=== PATIENT | female | born 1975 | race Caucasian/White ===

== ENCOUNTER 2018-06-24 10:20 | Emergency (ER) | payer OTHER, BC ==
[2018-06-24] MEDS: ONDANSETRON 4MG/2ML VIAL (J2405) IV (11:03)
[2018-06-24] MEDS: MORPHINE 4 MG/ML 1ML VIAL/SYRINGE (J2270) IV (11:03)
== END 2018-06-24 12:26 | disposition home or self-care (01) ==
LOC: M ED 10:20
DX: S16.1XXA Strain of muscle, fascia and tendon at neck level, initial encounter (principal); T14.8XXA Other injury of unspecified body region, initial encounter; V43.52XA Car driver injured in collision with other type car in traffic accident, initial encounter; Y92.410 Unspecified street and highway as the place of occurrence of the external cause; Y93.9 Activity, unspecified; Y99.9 Unspecified external cause status; M51.37 Other intervertebral disc degeneration, lumbosacral region; M50.221 Other cervical disc displacement at C4-C5 level; M50.222 Other cervical disc displacement at C5-C6 level; M46.02 Spinal enthesopathy, cervical region
CPT/HCPCS: J2270

== ENCOUNTER 2018-09-05 11:39 | Emergency (ER) | payer BC, OTHER ==
[~2018-09-05] VITALS: Ht 160 cm; Wt 80.0 kg
[~2018-09-05 11:39] MED LIST: CYCL5TAB PO; NAPR-50 PO
[2018-09-05 12:47] LABS: INFLUENZA A AMPLIFICATION NEGATIVE (NEGATIVE); INFLUENZA B AMPLIFICATION NEGATIVE (NEGATIVE)
[2018-09-05] MEDS ORDERED: BENZONATATE 100 MG CAP PO ONE (14:00)
[2018-09-05] MEDS ORDERED: ALBUTEROL SULFATE 2.5 MG/0.5 ML INH NEB SOLN NEB ONE (14:00)
[2018-09-05] MEDS ORDERED: NS 1,000 ML IV ONE (14:00)
[2018-09-05 14:32] LABS: BASO # 0.1 10^3/uL (0.0-0.2); BASO % 0.6 % (0.0-1.0); EOS # 0.5 10^3/uL (0.0-0.50); EOS % 5.6 % (0.0-3.0); HEMATOCRIT 39.6 % (36.0-47.0); HEMOGLOBIN 12.7 g/dl (12.0-15.5); LYMPH # 1.7 10^3/uL (1.5-4.5); LYMPH % 21.5 % (24.0-44.0); MEAN CORPUSCULAR HEMOGLOBIN 27.6 pg (27.0-33.0); MEAN CORPUSCULAR HGB CONC 32.1 g/dl (32.0-36.5); MEAN CORPUSCULAR VOLUME 86.1 fl (80.0-96.0); MONO # 0.4 10^3/uL (0.0-0.8); MONO % 5.3 % (0.0-5.0); NEUTROPHILS # 5.4 10^3/uL (1.8-7.7); NEUTROPHILS % 66.8 % (36.0-66.0); PLATELET COUNT, AUTOMATED 303 10^3/uL (150-450); WHITE BLOOD COUNT 8.1 10^3/uL (4.0-10.0)
--- NOTE | 2018-09-05 14:35 | REP ---
Chest two views HISTORY: Cough Comparison: 06/24/2018 The lungs are clear. The heart is normal in size. The pulmonary vasculature is normal in appearance. The bony structure is intact. IMPRESSION: No acute disease. Electronically Signed by Johnny Goodwin MD 09/05/2018 02:27 P
[2018-09-05 14:59] LABS: BLOOD UREA NITROGEN 11 MG/DL (7-18); CALCIUM LEVEL 8.5 MG/DL (8.5-10.1); CARBON DIOXIDE LEVEL 25 MEQ/L (21-32); CHLORIDE LEVEL 107 MEQ/L (98-107); CREATININE FOR GFR 0.81 MG/DL (0.55-1.30); GLOMERULAR FILTRATION RATE > 60.0 (>58); GLUCOSE, FASTING 91 MG/DL (70-100); POTASSIUM SERUM 3.9 MEQ/L (3.5-5.1); SODIUM LEVEL 140 MEQ/L (136-145)
[2018-09-05] MEDS ORDERED: PROAAER10 INH (15:30)
[2018-09-05] MEDS ORDERED: TESS100C PO (15:30)
[2018-09-05 15:45] VITALS: BP 141/92
== END 2018-09-05 16:12 | disposition home or self-care (01) ==
LOC: M ED 11:39
DX: J06.9 Acute upper respiratory infection, unspecified (principal); D64.9 Anemia, unspecified; Z87.440 Personal history of urinary (tract) infections; Z98.84 Bariatric surgery status

== ENCOUNTER → 2018-09-28 | Outpatient (REF) | payer BC, OTHER, SELFPAY ==
[~2018-09-28] MED LIST changes: -NAPR-50 PO; +NAPR-837 PO; +PROAAER10 INH; +TESS100C PO
[2018-09-28 19:40] LABS: BASO # 0.1 10^3/uL (0.0-0.2); BASO % 0.8 % (0.0-1.0); EOS # 0.4 10^3/uL (0.0-0.50); EOS % 3.8 % (0.0-3.0); HEMATOCRIT 37.7 % (36.0-47.0); HEMOGLOBIN 11.8 g/dl (12.0-15.5); LYMPH # 2.2 10^3/uL (1.5-4.5); LYMPH % 21.9 % (24.0-44.0); MEAN CORPUSCULAR HEMOGLOBIN 26.8 pg (27.0-33.0); MEAN CORPUSCULAR HGB CONC 31.3 g/dl (32.0-36.5); MEAN CORPUSCULAR VOLUME 85.7 fl (80.0-96.0); MONO # 0.6 10^3/uL (0.0-0.8); MONO % 6.1 % (0.0-5.0); NEUTROPHILS # 6.8 10^3/uL (1.8-7.7); PLATELET COUNT, AUTOMATED 343 10^3/uL (150-450); WHITE BLOOD COUNT 10.1 10^3/uL (4.0-10.0)
[2018-09-28 19:45] LABS: ALBUMIN 3.9 GM/DL (3.2-5.2); ALT/SGPT 26 U/L (12-78); BILIRUBIN,TOTAL 0.3 MG/DL (0.2-1.0); BLOOD UREA NITROGEN 13 MG/DL (7-18); CALCIUM LEVEL 8.3 MG/DL (8.5-10.1); CARBON DIOXIDE LEVEL 28 MEQ/L (21-32); CHLORIDE LEVEL 105 MEQ/L (98-107); CREATININE FOR GFR 0.79 MG/DL (0.55-1.30); FERRITIN 6 NG/ML (8-252); FOLATE 7.5 NG/ML; FREE T4 0.89 NG/DL (0.76-1.46); GLOMERULAR FILTRATION RATE > 60.0 (>58); GLUCOSE, FASTING 85 MG/DL (70-100); IRON (FE) 24 UG/DL (50-170); POTASSIUM SERUM 3.9 MEQ/L (3.5-5.1); SODIUM LEVEL 139 MEQ/L (136-145); TOTAL 25(OH) VITAMIN D 11.1 NG/ML (30.0-100.0); TOTAL IRON BINDING CAPACITY 476 UG/DL (250-450); TOTAL PROTEIN 7.5 GM/DL (6.4-8.2); VITAMIN B12 LEVEL 494 PG/ML
== END ==
LOC: M SFHCADAM 15:13
PROVIDERS: ATTEND Physician Assistant Medical
DX: D50.8 Other iron deficiency anemias (principal); D51.3 Other dietary vitamin B12 deficiency anemia; E66.9 Obesity, unspecified

== ENCOUNTER 2019-01-21 08:34 | Emergency (ER) | payer BC, OTHER ==
[~2019-01-21] VITALS: Ht 157.5 cm; Wt 79.5 kg
[2019-01-21] MEDS ORDERED: ACETAMINOPHEN TAB 650MG DOSE (2X325MG) PO ONE (10:00)
[2019-01-21] MEDS ORDERED: methylPREDNISolone INJ 125 MG/2 ML VIAL (J2930) IM ONE (10:00)
[2019-01-21] MEDS ORDERED: IPRATROPIUM 0.5MG/ALBUTEROL 2.5MG INH SOL UD 3ML (DUONEB)(J7620) NEB ONE ×2 (10:00→11:15)
[2019-01-21 10:19] LABS: HEMATOCRIT 35.8 % (36.0-47.0); HEMOGLOBIN 11.1 g/dl (12.0-15.5); MEAN CORPUSCULAR HEMOGLOBIN 25.2 pg (27.0-33.0); MEAN CORPUSCULAR VOLUME 81.4 fl (80.0-96.0); PLATELET COUNT, AUTOMATED 354 10^3/uL (150-450); WHITE BLOOD COUNT 5.7 10^3/uL (4.0-10.0)
[2019-01-21 11:03] VITALS: BP 158/95
[2019-01-21] MEDS ORDERED: PRED10TA2 PO (11:31)
[2019-01-21] MEDS ORDERED: PROAAER10 INH (11:31)
[2019-01-21] MEDS ORDERED: TESS100C PO (11:31)
--- NOTE | 2019-01-24 13:18 | REP ---
Clinical: Cough Comparison: 09/05/2018 . Technique: PA and lateral. Findings: The mediastinum and cardiac silhouette are normal. The lung sandhu are clear and without acute consolidation, effusion, or pneumothorax. The skeletal structures are intact and normal. Impression: 1. No acute cardiopulmonary process. Electronically Signed by Luis Felipe Sheriff MD 01/21/2019 09:57 A
== END 2019-01-21 11:49 | disposition home or self-care (01) ==
LOC: M ED 08:34
DX: J20.9 Acute bronchitis, unspecified (principal); D64.9 Anemia, unspecified; Z20.828 Contact with and (suspected) exposure to other viral communicable diseases; I10 Essential (primary) hypertension; Z98.84 Bariatric surgery status
CPT/HCPCS: 71046; 80047; 84702; 85027; 87880; 96372; 99284; J2930

== ENCOUNTER 2019-03-24 19:30 | Emergency (ER) | payer BC, OTHER ==
[~2019-03-24] VITALS: Ht 162.6 cm; Wt 82.7 kg
[~2019-03-24 19:30] MED LIST changes: +PRED10TA2 PO
[2019-03-24] MEDS ORDERED: IRON325T9 PO (19:45)
[2019-03-24 20:23] LABS: BASO # 0.1 10^3/uL (0.0-0.2); BASO % 0.6 % (0.0-1.0); EOS # 0.2 10^3/uL (0.0-0.5); EOS % 1.9 % (0.0-3.0); HEMATOCRIT 33.2 % (36.0-47.0); LYMPH # 2.4 10^3/uL (1.5-5.0); MEAN CORPUSCULAR HEMOGLOBIN 23.5 pg (27.0-33.0); MEAN CORPUSCULAR HGB CONC 30.1 g/dl (32.0-36.5); MEAN CORPUSCULAR VOLUME 77.9 fl (80.0-96.0); MONO # 0.6 10^3/uL (0.0-0.8); MONO % 7.2 % (0.0-5.0); NEUTROPHILS # 4.6 10^3/uL (1.5-8.5); PLATELET COUNT, AUTOMATED 316 10^3/uL (150-450); RED BLOOD COUNT 4.26 10^6/uL (4.00-5.40); WHITE BLOOD COUNT 7.8 10^3/uL (4.0-10.0)
[2019-03-24 20:49] LABS: BLOOD UREA NITROGEN 13 MG/DL (7-18); CALCIUM LEVEL 8.8 MG/DL (8.5-10.1); CARBON DIOXIDE LEVEL 31 MEQ/L (21-32); CHLORIDE LEVEL 107 MEQ/L (98-107); CK-MB VALUE MASS 1.8 NG/ML (<3.6); CPK CREATINE PHOSPHOKINASE 249 U/L (26-192); CREATININE FOR GFR 0.92 MG/DL (0.55-1.30); GLOMERULAR FILTRATION RATE > 60.0 (>58); GLUCOSE, FASTING 97 MG/DL (70-100); MB/CK RELATIVE INDEX 0.72 (< OR =4); POTASSIUM SERUM 3.8 MEQ/L (3.5-5.1); SODIUM LEVEL 142 MEQ/L (136-145); TROPONIN I < 0.02 NG/ML (< 0.10)
--- NOTE | 2019-03-24 21:03 | REP ---
Clinical: Acute chest pain . Comparison: 01/21/2019 . Findings: The mediastinum and cardiac silhouette are stable and within normal limits for portable technique. The lung sandhu are clear without acute consolidation, effusion, or pneumothorax. Skeletal structures are intact. Impression: No acute cardiopulmonary process appreciated. Electronically Signed by Luis Felipe Sheriff MD 03/24/2019 08:54 P
[2019-03-24 22:58] LABS: CK-MB VALUE MASS 1.5 NG/ML (<3.6); CPK CREATINE PHOSPHOKINASE 211 U/L (26-192); MB/CK RELATIVE INDEX 0.71 (< OR =4); TROPONIN I < 0.02 NG/ML (< 0.10)
[2019-03-24] MEDS ORDERED: CARISOPRODOL 350 MG TAB PO ONE (23:15)
[2019-03-24] MEDS ORDERED: SOMA250T PO (23:19)
[2019-03-24 23:42] VITALS: BP 142/74
--- NOTE | 2019-03-25 20:29 | ECGEPIP ---
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
--- NOTE | 2019-03-25 20:32 | ECGEPIP ---
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
== END 2019-03-24 23:52 | disposition home or self-care (01) ==
LOC: EDBD 19:30 → M ED 19:30
DX: R07.89 Other chest pain (principal); S39.012A Strain of muscle, fascia and tendon of lower back, initial encounter; D64.9 Anemia, unspecified; N36.8 Other specified disorders of urethra; Z79.899 Other long term (current) drug therapy; Z98.84 Bariatric surgery status; Z90.49 Acquired absence of other specified parts of digestive tract

== ENCOUNTER → 2019-04-03 | Outpatient (CLI) | payer BC, OTHER ==
[~2019-04-03] MED LIST changes: +IRON325T9 PO; +SOMA250T PO
[2019-04-03 13:19] LABS: BASO % 0.7 % (0.0-1.0); EOS # 0.1 10^3/uL (0.0-0.5); EOS % 1.7 % (0.0-3.0); HEMATOCRIT 35.5 % (36.0-47.0); HEMOGLOBIN 10.7 g/dl (12.0-15.5); LYMPH # 1.6 10^3/uL (1.5-5.0); LYMPH % 27.6 % (24.0-44.0); MEAN CORPUSCULAR HEMOGLOBIN 23.1 pg (27.0-33.0); MEAN CORPUSCULAR HGB CONC 30.1 g/dl (32.0-36.5); MEAN CORPUSCULAR VOLUME 76.5 fl (80.0-96.0); MONO # 0.4 10^3/uL (0.0-0.8); MONO % 6.8 % (0.0-5.0); NEUTROPHILS # 3.6 10^3/uL (1.5-8.5); PLATELET COUNT, AUTOMATED 356 10^3/uL (150-450); RED BLOOD COUNT 4.64 10^6/uL (4.00-5.40); WHITE BLOOD COUNT 5.8 10^3/uL (4.0-10.0)
[2019-04-03 13:37] LABS: ALBUMIN 3.9 GM/DL (3.2-5.2); ALT/SGPT 18 U/L (12-78); BILIRUBIN,TOTAL 0.5 MG/DL (0.2-1.0); BLOOD UREA NITROGEN 9 MG/DL (7-18); CALCIUM LEVEL 8.8 MG/DL (8.5-10.1); CARBON DIOXIDE LEVEL 28 MEQ/L (21-32); CHLORIDE LEVEL 107 MEQ/L (98-107); CREATININE FOR GFR 0.85 MG/DL (0.55-1.30); FOLATE 9.4 NG/ML; GLOMERULAR FILTRATION RATE > 60.0 (>58); GLUCOSE, FASTING 88 MG/DL (70-100); IRON (FE) 16 UG/DL (50-170); PERCENT SATURATION 3.3 % (13.2-45.0); POTASSIUM SERUM 3.8 MEQ/L (3.5-5.1); SODIUM LEVEL 141 MEQ/L (136-145); TOTAL IRON BINDING CAPACITY 487 UG/DL (250-450); TOTAL PROTEIN 7.5 GM/DL (6.4-8.2); VITAMIN B12 LEVEL 379 PG/ML
--- NOTE | 2019-04-04 02:29 | REP ---
Clinical: Acute chest pain . Comparison: 01/21/2019 . Technique: PA and lateral. Findings: The mediastinum and cardiac silhouette are normal. The lung sandhu are clear and without acute consolidation, effusion, or pneumothorax. The skeletal structures are intact and normal. Impression: 1. No acute cardiopulmonary process. Electronically Signed by Luis Felipe Sheriff MD 04/04/2019 02:20 A
== END ==
LOC: M WUC 10:49
PROVIDERS: ATTEND Nurse Practitioner Family
DX: R07.9 Chest pain, unspecified (principal); R42 Dizziness and giddiness

== ENCOUNTER → 2019-07-24 | Outpatient (REF) | payer BC, OTHER ==
[2019-07-24 16:29] LABS: HEMATOCRIT 35.2 % (36.0-47.0); HEMOGLOBIN 9.8 g/dl (12.0-15.5); MEAN CORPUSCULAR HEMOGLOBIN 20.7 pg (27.0-33.0); MEAN CORPUSCULAR HGB CONC 27.8 g/dl (32.0-36.5); MEAN CORPUSCULAR VOLUME 74.3 fl (80.0-96.0); PLATELET COUNT, AUTOMATED 430 10^3/uL (150-450); RED BLOOD COUNT 4.74 10^6/uL (4.00-5.40); WHITE BLOOD COUNT 8.5 10^3/uL (4.0-10.0)
[2019-07-24 16:38] LABS: PERCENT SATURATION 2.7 % (13.2-45.0)
[2019-07-24 17:03] LABS: TOTAL 25(OH) VITAMIN D 11.8 NG/ML (30.0-100.0)
== END ==
LOC: M SFHCADAM 14:08
PROVIDERS: ATTEND Physician Assistant Medical
DX: D50.8 Other iron deficiency anemias (principal); E55.9 Vitamin D deficiency, unspecified; R39.15 Urgency of urination

== ENCOUNTER → 2019-07-24 | Outpatient (REF) | payer BC, OTHER ==
[2019-07-24 18:07] LABS: APPEARANCE, URINE CLEAR (CLEAR); BACTERIA, URINE AUTO NEGATIVE (NEGATIVE); BILIRUBIN, URINE AUTO NEGATIVE (NEGATIVE); BLOOD, URINE BLOOD NEGATIVE (NEGATIVE); COLOR, URINE YELLOW (YELLOW); GLUCOSE, URINE (UA) AUTO NEGATIVE (NEGATIVE); KETONE, URINE AUTO NEGATIVE (NEGATIVE); LEUKOCYTE ESTERASE, URINE AUTO NEGATIVE (NEGATIVE); MUCUS, URINE SMALL (NEGATIVE); NITRITE, URINE AUTO NEGATIVE (NEGATIVE); PROTEIN, URINE AUTO NEGATIVE (NEGATIVE); RBC, URINE AUTO 0 /HPF (0-3); SPECIFIC GRAVITY URINE AUTO 1.016 (1.002-1.035); SQUAMOUS EPITHELIAL CELL UR AU 1 /HPF (0-6); UROBILINOGEN, URINE AUTO 0.2 mg/dL (0.0-2.0); WBC, URINE AUTO 3 /HPF (0-3)
== END ==
LOC: M SFHCADAM 17:22
PROVIDERS: ATTEND Physician Assistant Medical
DX: R39.15 Urgency of urination (principal)

== ENCOUNTER → 2019-08-14 | Outpatient (REF) | payer OTHER ==
[2019-08-14 19:26] LABS: ALT/SGPT 22 U/L (12-78); AMYLASE 38 U/L (25-115); BILIRUBIN,TOTAL 0.2 MG/DL (0.2-1.0); BLOOD UREA NITROGEN 14 MG/DL (7-18); CALCIUM LEVEL 9.3 MG/DL (8.5-10.1); CARBON DIOXIDE LEVEL 29 MEQ/L (21-32); CHLORIDE LEVEL 106 MEQ/L (98-107); CREATININE FOR GFR 0.96 MG/DL (0.55-1.30); GLOMERULAR FILTRATION RATE > 60.0 (>58); GLUCOSE, FASTING 79 MG/DL (70-100); LIPASE 214 U/L (73-393); POTASSIUM SERUM 4.1 MEQ/L (3.5-5.1); SODIUM LEVEL 141 MEQ/L (136-145); TOTAL PROTEIN 7.6 GM/DL (6.4-8.2)
[2019-08-15 10:41] LABS: FOLATE 10.2 NG/ML
[2019-08-17 14:08] LABS: ANTI-PARIETAL CELL ANTIBODY 3.5 Units (0.0-20.0)
== END ==
LOC: M SFHCADAM 15:36
PROVIDERS: ATTEND Physician Assistant
DX: D51.3 Other dietary vitamin B12 deficiency anemia (principal); N30.00 Acute cystitis without hematuria; R10.13 Epigastric pain
CPT/HCPCS: 80053; 81002; 82150; 82607; 82746; 83690; 86255; 86256; 87086; G0463

== ENCOUNTER 2019-08-16 07:44 | Outpatient (CLI) | payer OTHER ==
[~2019-08-16] VITALS: Ht 162.6 cm; Wt 82.7 kg
[2019-08-16] MEDS ORDERED: IRON SUCROSE 100 MG in NS 100 ML IV ONE (08:00)
[2019-08-16 08:07] VITALS: BP 138/86
[2019-08-16 08:22] VITALS: BP 123/72
[2019-08-16 09:18] VITALS: BP 112/63
[2019-08-16 09:55] VITALS: BP 124/75
== END 2019-08-16 09:55 | disposition home or self-care (01) ==
LOC: M INFU 07:44
PROVIDERS: ATTEND Physician Assistant Medical
DX: D50.9 Iron deficiency anemia, unspecified (principal)
CPT/HCPCS: 96365; J1756

== ENCOUNTER 2019-08-24 06:52 | Outpatient (CLI) | payer OTHER ==
[~2019-08-24] VITALS: Ht 162.6 cm; Wt 82.7 kg
[2019-08-24 07:00] VITALS: BP 146/72
[2019-08-24] MEDS ORDERED: IRON SUCROSE 200 MG in NS 200 ML IV ONE (07:30)
[2019-08-24 08:05] VITALS: BP 129/82
[2019-08-24 09:00] VITALS: BP 125/68
[2019-08-24 09:20] VITALS: BP 136/78
[2019-08-24 09:45] VITALS: BP 123/73
== END 2019-08-24 09:45 | disposition home or self-care (01) ==
LOC: M INFU 06:52
PROVIDERS: ATTEND Physician Assistant Medical
DX: D50.8 Other iron deficiency anemias (principal); E53.8 Deficiency of other specified B group vitamins
CPT/HCPCS: 96365; 96366; J1756

== ENCOUNTER 2019-08-31 08:30 | Outpatient (CLI) | payer OTHER ==
[~2019-08-31] VITALS: Ht 162.6 cm; Wt 82.7 kg
[2019-08-31 08:25] VITALS: BP 141/70
[2019-08-31] MEDS ORDERED: IRON SUCROSE 200 MG in NS 200 ML IV ONE (09:30)
[2019-08-31 09:50] VITALS: BP 142/97
[2019-08-31 10:50] VITALS: BP 135/89
[2019-08-31 11:50] VITALS: BP 142/87
[2019-08-31 12:20] VITALS: BP 132/77
== END 2019-08-31 12:20 | disposition home or self-care (01) ==
LOC: M INFU 08:30
PROVIDERS: ATTEND Physician Assistant Medical
DX: D50.8 Other iron deficiency anemias (principal)

== ENCOUNTER → 2019-08-31 | Outpatient (CLI) | payer OTHER ==
--- NOTE | 2019-09-02 08:13 | ECHO ---
DATE OF PROCEDURE: 08/31/2019 HEIGHT: 64 inches. WEIGHT: 181 pounds. BODY SURFACE AREA: 1.87 meters squared REFERRING PHYSICIAN: DANNIE Correa INDICATION: Murmur. MEASUREMENTS: 2D Measurements: RV - 4.2 cm LV - 5.3 cm Septum - 1.1 cm Posterior wall - 1.1 cm Aortic root - 3.0 cm LA - 4.2 cm LVEF - 65% Doppler Measurements: AV - 1.36 meters per second LVOT - 0.93 meters per second LVOT diameter 1.9 cm MV-E - 106, A - 81, E/A ratio 1.3 Early mitral deceleration time 151 milliseconds E prime medial - 7, A prime medial - 8, E prime lateral - 10 Average, E/E prime ratio 12.5/PCWP -17.4 mmHg PV - 0.75 meters per second Pulmonary artery acceleration time - 130 milliseconds RVSP - 27 mmHg IVC - 1.6 cm COMMENTS: Normal sinus rhythm/sinus bradycardia without interventricular conduction disturbance. M-mode and two-dimensional echocardiography was performed with pulsed, continuous wave, color flow and tissue Doppler studies. Normal left ventricular size, wall thickness and wall motion. Mildly dilated left atrium with currently normal estimated left ventricular diastolic function and mean left atrial pressure. Right heart chamber sizes were upper limits of normal with normal wall motion and estimated pulmonary arterial pressure. Normal IVC size and collapse against an elevated central venous pressure. Normal-appearing aortic valve and function. Normal aortic root and ascending aortic diameters. Normal-appearing mitral valvular apparatus and leaflet excursion with no posterior systolic buckling. Only trace insufficiency (physiologic). Normal appearing tricuspid valve with trace insufficiency. No apparent intracardiac mass or pericardial effusion. Unable to detect a structural or functional abnormality to account for the patient's heart murmur likely flow related.
== END ==
LOC: M CARPUL 11:30
PROVIDERS: ATTEND Physician Assistant
DX: R01.1 Cardiac murmur, unspecified (principal); D50.8 Other iron deficiency anemias
CPT/HCPCS: 93306; 96365; 96366; J1756

== ENCOUNTER → 2019-09-03 | Outpatient (REF) | payer OTHER ==
[2019-09-03 16:21] LABS: HEMATOCRIT 36.4 % (36.0-47.0); HEMOGLOBIN 10.4 g/dl (12.0-15.5); MEAN CORPUSCULAR HEMOGLOBIN 21.5 pg (27.0-33.0); MEAN CORPUSCULAR HGB CONC 28.6 g/dl (32.0-36.5); MEAN CORPUSCULAR VOLUME 75.4 fl (80.0-96.0); PLATELET COUNT, AUTOMATED 399 10^3/uL (150-450); RED BLOOD COUNT 4.83 10^6/uL (4.00-5.40); WHITE BLOOD COUNT 6.7 10^3/uL (4.0-10.0)
[2019-09-03 16:31] LABS: PERCENT SATURATION 6.8 % (13.2-45.0)
== END ==
LOC: M SFHCADAM 13:47
PROVIDERS: ATTEND Physician Assistant Medical
DX: D50.8 Other iron deficiency anemias (principal); E55.9 Vitamin D deficiency, unspecified; D51.3 Other dietary vitamin B12 deficiency anemia; F32.2 Major depressive disorder, single episode, severe without psychotic features
CPT/HCPCS: 82306; 82607; 82728; 83550; 85027; 87804; G0463

== ENCOUNTER 2019-10-05 03:44 | Emergency (ER) | payer OTHER ==
[~2019-10-05] VITALS: Ht 160 cm; Wt 84.1 kg
[2019-10-05 04:48] LABS: INFLUENZA A AMPLIFICATION NEGATIVE (NEGATIVE); INFLUENZA B AMPLIFICATION NEGATIVE (NEGATIVE)
[2019-10-05 05:27] VITALS: BP 148/79
--- NOTE | 2019-10-05 08:00 | REP ---
Portable chest x-ray: Single view. History: Cough. Comparison study: April 03, 2019. Findings: The lungs are well inflated and clear. The pleural angles are sharp. Heart is not enlarged. Pulmonary vasculature is not increased. No significant bony abnormality. Impression: No acute disease. Electronically Signed by Horacio Mota MD 10/05/2019 07:51 A
== END 2019-10-05 05:32 | disposition home or self-care (01) ==
LOC: M ED 03:44
DX: J06.9 Acute upper respiratory infection, unspecified (principal); Z20.89 Contact with and (suspected) exposure to other communicable diseases; Z03.818 Encounter for observation for suspected exposure to other biological agents ruled out; D50.9 Iron deficiency anemia, unspecified; Z98.84 Bariatric surgery status; Z79.899 Other long term (current) drug therapy
CPT/HCPCS: 71045; 87502; 99283; U0002

== ENCOUNTER → 2020-08-21 | Outpatient (CLI) | payer OTHER ==
[~2020-08-21] MED LIST changes: +B-122500 PO; +vitamin d
[2020-08-21 16:19] LABS: HEMATOCRIT 30.3 % (36.0-47.0); HEMOGLOBIN 8.4 g/dl (12.0-15.5); MEAN CORPUSCULAR HGB CONC 27.7 g/dl (32.0-36.5); MEAN CORPUSCULAR VOLUME 72.1 fl (80.0-96.0); PLATELET COUNT, AUTOMATED 356 10^3/uL (150-450); WHITE BLOOD COUNT 8.5 10^3/uL (4.0-10.0)
[2020-08-21 16:53] LABS: PERCENT SATURATION 5.4 % (13.2-45.0)
== END ==
LOC: M WUC 14:08
PROVIDERS: ATTEND Physician Assistant Medical
DX: D50.8 Other iron deficiency anemias (principal); D51.3 Other dietary vitamin B12 deficiency anemia

== ENCOUNTER 2020-08-22 16:37 | Emergency (ER) | payer OTHER ==
[~2020-08-22] VITALS: Ht 160 cm; Wt 87.3 kg
[~2020-08-22 16:37] MED LIST changes: -B-122500 PO; -vitamin d
--- OUTSIDE RECORDS SUMMARY | 2020-08-22 16:46 | CCD ---
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 Active 13947 001 Problem Menorrhagia with regular cycle N92.0 Active 3 64084742 Problem Obesity (BMI 30.0-34.9) E66.9 Active 38371303 9607970 Problem Other dietary vitamin B12 deficiency anemia D51.3 Active 01256863 Problem Vitamin D deficiency E55.9 Active 14786836 Problem Anxiety F41.9 Active 82291846 ALLERGIES No Known Allergies ENCOUNTERS from 1975 to 2020-06-09 Encounter Location Date Provider Diagnosis [id number] [place] [address] May, Mar renate Romo IMMUNIZATIONS No Information SOCIAL HISTORY Tobacco Use: Social History Observation Description Date Details (start date - stop date) Never Smoker Sex Assigned At : Social History Observation Description Sex Assigned At Unknown Education: Question Answer Notes Level of Education: Finished College Audit Question Answer Notes Total Score: 1 Interpretation: Alcohol Education Language: Question Answer Notes Languages spoken: Maori Religious: Question Answer Notes Religious 08 Jewish Sexual Hx: Question Answer Notes Had sex in the last 12 months (vaginal, oral, or anal)? Yes with Men only Use protection? No Drug and Alcohol Question Answer Notes Total Score: 0 Interpretation: No problems reported Alcohol Screening: Question Answer Notes Did you have a drink containing alcohol in the past year? Ye s Points 1 Interpretation Negative How often did you have six or more drinks on one occas ion in the past year? Never (0 points) How many drinks did you have on a typica l day when you were drinking in the past year? 1 or 2 (0 points) How often did you have a drink containing alcohol in t he past year? Monthly or less (1 point) BMI Care Goal Follow-Up Question Answer Notes Above Normal BMI Follow-Up Dietary management educatio n, guidance, and counseling Tobacco Use: Question Answer Notes Are you a: never smoker REASON FOR REFERRAL No Information VITAL SIGNS No information MEDICATIONS Medication SIG (Take, Route, Frequency, Duration) Notes Start Da te End Date Status Drisdol 60675 UNIT 1 capsule Orally weekly Jul, Active Vitamin B12 1000 MCG 1 tablet Orally Once a day for 30 day(s) Jul, Active Polysaccharide Iron Complex 150 MG 1 capsule Orally Once a day f or 30 day(s) Sep, Active Syringe 2-3 ML 3 ML as directed intramuscularly once weekly for 30 Days Jul, Active Omeprazole 40 MG 1 capsule 30 minutes before morning meal Orally Once a day for 14 day(s) Jul, Active Cyanocobalamin 1000 MCG/ML 1 ml Injection once a week for 30 day (s) Jul, Active Sertraline HCl 50 MG 1 tablet Orally Once a day for 30 day(s) Jul, Active Ocuvite 1 cap orally twice daily Not-Taking PROCEDURES No Information RESULTS No Results REASON FOR VISIT appt MEDICAL (GENERAL) HISTORY Type Description Date Medical History Anemia d/t gastric bypass, B12 and Iron def Medical History MDD/Anxiety Medical History B12 deficiency, Neg 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 Medical History Vitamin D deficiency Medical History Iron deficiency Anemia - Neg Celiac Pane l 07/2019 Medical History depression Medical History 08/2019 Neg ECHO Medical History med noncompliance Medical History macular degeneration - Xochitl kruse, she was recommended 09/03/2019 that she needs to see Ophtho prev was seen at [facility] Surgical History Gastric Bypass 2007 Surgical History Cholesystectomy 2001 Hospitalization History Childbirth X2 Hospitalization History Transfusions X2 Goals Section No Information Health Concerns No Information MEDICAL EQUIPMENT No Information MENTAL STATUS No Information FUNCTIONAL STATUS No Information ASSESSMENTS No Information PLAN OF TREATMENT Medication Medication Name Sig Start Date Stop Date Polysaccharide Iron Complex 150 MG 1 capsule Orally Once a d ay for 30 day(s) Sep, Sertraline HCl 50 MG 1 tablet Orally Once a day for 30 day(s) Jul, Vitamin B12 1000 MCG 1 tablet Orally Once a day for 30 day(s) Jul, Next Appt Details Provider Name:Nancy Romo, 2020-06-17 11:00:00 AM, [address], [place], [address], Insurance Providers Payer Name Payer Address Payer Phone Insured Name Patient Relati onship to Insured Coverage Start Date Coverage End Date [facility] [address] [place] [id number] KEN BURCH self
--- OUTSIDE RECORDS SUMMARY | 2020-08-22 16:46 | CCD ---
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 Active 43447 001 Problem Menorrhagia with regular cycle N92.0 Active 3 60115307 Problem Obesity (BMI 30.0-34.9) E66.9 Active 05871716 5929747 Problem Other dietary vitamin B12 deficiency anemia D51.3 Active 98282309 Problem Vitamin D deficiency E55.9 Active 66206441 Problem Anxiety F41.9 Active 20506000 ALLERGIES No Known Allergies ENCOUNTERS from 1975 to 2020-08-15 Encounter Location Date Provider Diagnosis [id number] [place] [address] Jul, Mar renate Romo IMMUNIZATIONS No Information SOCIAL HISTORY Tobacco Use: Social History Observation Description Date Details (start date - stop date) Never Smoker Sex Assigned At : Social History Observation Description Sex Assigned At Unknown Education: Question Answer Notes Level of Education: Finished College Audit Question Answer Notes Total Score: 1 Interpretation: Alcohol Education Language: Question Answer Notes Languages spoken: Cambodian Sabianist: Question Answer Notes Sabianist 08 Yazidism Sexual Hx: Question Answer Notes Had sex [...] Notes Start Da te End Date Status Vitamin B12 1000 MCG 1 tablet Orally Once a day for 30 day(s) Jul, Active Cyanocobalamin 1000 MCG/ML 1 ml Injection once a week for 30 day (s) Jul, Not-Taking Drisdol 68354 UNIT 1 capsule Orally weekly Jul, Not-Taking Polysaccharide Iron Complex 150 MG 1 capsule Orally Once a day f or 30 day(s) Sep, Active Ocuvite 1 cap orally twice daily Not-Taking Omeprazole 40 MG 1 capsule 30 minutes before morning meal Orally Once a day for 14 day(s) Jul, Not-Taking Sertraline HCl 50 MG 1 tablet Orally Once a day for 30 day(s) Jul, Not-Taking Syringe 2-3 ML 3 ML as directed intramuscularly once weekly for 30 Days Jul, Not-Taking PROCEDURES No Information RESULTS No Results REASON FOR VISIT PA for referral MEDICAL (GENERAL) HISTORY Type Description Date Medical History Anemia d/t gastric bypass, B12 and Iron def Medical History MDD/Anxiety Medical History B12 deficiency, Neg 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 Medical History Vitamin D deficiency Medical History Iron deficiency Anemia - Neg Celiac Pane l 07/2019 Medical History depression Medical History 08/2019 Neg ECHO Medical History med noncompliance Medical History macular degeneration - Xochitl rt, she was recommended 09/03/2019 that she needs to see Ophtho prev was seen at [facility] Surgical History Gastric Bypass - [place] 2007 Surgical History Cholesystectomy 2002 Hospitalization History Childbirth X2 Hospitalization History Transfusions X2 Goals Section No Information Health Concerns No Information MEDICAL EQUIPMENT No Information MENTAL STATUS No Information FUNCTIONAL STATUS No Information ASSESSMENTS No Information PLAN OF TREATMENT Next Appt Details Provider Name:Nancy Romo, 2020-08-19 10:30:00 AM, [address], [place], [address], Insurance Providers Payer Name Payer Address Payer Phone Insured Name Patient Relati onship to Insured Coverage Start Date Coverage End Date [facility] [address] [facility] [place] [id number] KEN BURCH self
--- OUTSIDE RECORDS SUMMARY | 2020-08-22 16:46 | CCD ---
Author Author [facility] [employer] 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 Active 67775 001 Problem Menorrhagia with regular cycle N92.0 Active 3 06079303 Problem Obesity (BMI 30.0-34.9) E66.9 Active 18650343 1770209 Problem Other dietary vitamin B12 deficiency anemia D51.3 Active 04068135 Problem Vitamin D deficiency E55.9 Active 97361566 Problem Anxiety F41.9 Active 10479552 ALLERGIES No Known Allergies ENCOUNTERS from 1975 to 2020-06-21 Encounter Location Date Provider Diagnosis [address] [place] [address] Jun, Alayna renate Romo Other iron deficiency anemia D50.8 ; Other dietary vitamin B12 deficiency anemia D51.3 ; Obesity (BMI 30.0-34.9) E66.9 ; Nonintractable episodic headache, unspecified headache type R51.9 ; Other chest pain R07.89 and REEVES (dyspnea on exertion) R06.00 IMMUNIZATIONS No Information SOCIAL HISTORY Tobacco Use: Social History Observation Description Date Details (start date - stop date) Never Smoker Sex Assigned At : Social History Observation Description Sex Assigned At Unknown Education: Question Answer Notes Level of Education: Finished College Audit Question Answer Notes Total Score: 1 Interpretation: Alcohol Education Language: Question Answer Notes Languages spoken: Ugandan Mosque: Question Answer Notes Mosque 08 Uatsdin Sexual Hx: Question Answer Notes Had sex [...] REASON FOR REFERRAL No Information VITAL SIGNS Weight 191.6 lbs Jun, Height 5'3.5" in Jun, BMI 33.40 kg/m2 Jun, Heart Rate 105 /min Jun, Respiratory Rate 18 /min Jun, Temperature 98.4 degrees Fahrenheit Jun, Oximetry 98 Jun, Blood pressure systolic 128 mm Hg Jun, Blood pressure diastolic 76 mm Hg Jun, MEDICATIONS Medication SIG (Take, Route, Frequency, Duration) Notes Start Da te End Date Status Vitamin B12 1000 MCG 1 tablet Orally Once a day for 30 day(s) Jul, Active Cyanocobalamin 1000 MCG/ML 1 ml Injection once a week for 30 day (s) Jul, Not-Taking Drisdol 53614 UNIT 1 capsule Orally weekly Jul, Not-Taking [...] Information RESULTS No Results REASON FOR VISIT follow up MEDICAL (GENERAL) HISTORY Type Description Date Medical History Anemia d/t gastric bypass, B12 and Iron def Medical History MDD/Anxiety Medical History B12 deficiency, Neg 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 Medical History Vitamin D deficiency Medical History Iron deficiency Anemia - Neg Celiac Pane l 07/2019 Medical History depression Medical History 08/2019 Neg ECHO Medical History med noncompliance Medical History macular degeneration - [place] rt, she was recommended 09/03/2019 that she needs to see Ophtho, prev was seen at [facility] Surgical History Gastric Bypass - La en Y 2006 Surgical History Cholesystectomy 2001 Hospitalization History Childbirth X2 Hospitalization History Transfusions X2 Goals Section No Information Health Concerns No Information MEDICAL EQUIPMENT No Information MENTAL STATUS No Information FUNCTIONAL STATUS No Information ASSESSMENTS Encounter Date Diagnosis Assessment Notes Treatment Notes Treatm ent Clinical Notes Jun, Other iron deficiency anemia (ICD-10 - D50.8) She needs BW, I stressed the importance of routine f/u and compliance with recommendations. Referral place for her to establish with Heme. She is agreeable to this again. Jun, Other dietary vitamin B12 deficiency anemia (ICD -10 - D51.3) Jun, Obesity (BMI 30.0-34.9) (ICD-10 - E66.9) Jun, Nonintractable episodic head ache, unspecified headache type (ICD-10 - R51.9) She feels this is assoc with her anemia, and it could be. She understands to let me know if this doesn't improve with mgmt of her anemia. Jun, Other chest pain (ICD-10 - R07.89) As I am finishing up with her she tells me lately going up stairs or exertion has been difficult for her. We talked about the impact of anemia on the muscles including the heart. I recommend she see Cardio as well. Referral placed. Jun, REEVES (dyspnea on exertion) (ICD-10 - R06.00) PLAN OF TREATMENT Treatment Notes Assessment Notes Clinical Notes Other iron deficiency anemia She needs BW, I stressed the importance of routine f/u and compliance with recommendations. Referral place for her to establish with Heme. She is agreeable to this again. Nonintractable episodic headache, unspecified headache type She feels this is assoc with her anemia, and it could be. She understands to let me know if this doesn't improve with mgmt of her anemia. Other chest pain As I am finishing up with he r she tells me lately going up stairs or exertion has been difficult for her. We talked about the impact of anemia on the muscles including the heart. I recommend she see Cardio as well. Referral placed. Treatment Notes Test Name Order Date CBC - Complete Blood Count 2020-06-21 IRON (FE) 2020-06-21 FERRITIN 2020-06-21 TOTAL IRON BINDING CAPACIT 2020-06-21 VITAMIN B12 LEVEL 2020-06-21 Next Appt Details 2 Months - 30 m Reason: Provider Name:Nancy Kezia Romo, 2020-08-19 10:30:00 AM, [address], [place], [address], Insurance Providers Payer Name Payer Address Payer Phone Insured Name Patient Relati onship to Insured Coverage Start Date Coverage End Date [facility] [employer] [address] [place] [address] KEN BURCH self
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
[2020-08-22] MEDS ORDERED: vitamin d (16:53)
[2020-08-22] MEDS ORDERED: B-122500 PO (16:53)
[2020-08-22] MEDS ORDERED: ASPIRIN 81 MG CHEW TABLET PO ONE (17:45)
[2020-08-22] MEDS ORDERED: NITROGLYCERIN 0.4 MG SUBL TABLET SL PRN (17:45)
--- OUTSIDE RECORDS SUMMARY | 2020-08-22 17:49 | CCD ---
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 If you continue you may have access to information: Regarding HIV / AIDS; Provided by facilities licensed or operated by the [facility] Office of Mental Health; or Provided by the [facility] Office for People With Developmental Disabilities. If such information is present, then the following [facility] mandated warning applies: This information has been [...] law may result in a fine or alf sentence or both. A general authorization for the release of medical or other information is NOT sufficient authorization for further disc losure. Encounters Encounter Providers Location Date Indications Data Source(s ) Unknown [address] [facility] [address] 08/14/2020 12:00:00 AM EST eCW1 ([facility]) Outpatient [address] [facility] [place] [address] 06/17/2020 12:00:00 AM EST eCW1 ([facility]) Unknown [address] [facility] [address] 06/09/2020 12:00:00 AM EST eCW1 ([facility]) Outpatient Attender: MARIA FERNANDA mckeon 04/10/2020 03:50:00 PM EDT MEDENT ([facility], [facility]) [facility] [place] [address] [place] [address], [place] [address] 12/26/2019 12:00:00 AM EDT eCW1 ([facility]) Outpatient 10/14/2019 10:16:00 AM EDT [facility] [place] [address] [place] [address], [place] [address] 10/11/2019 12:00:00 AM EDT eCW1 ([facility]) [facility] [place] [address] [place] [address], [place] [address] 10/11/2019 12:00:00 AM EDT eCW1 ([facility]) [address] [place] [address] 10/08/2019 12:00:00 AM EDT eCW1 ([facility]) [facility] [place] [address] [place] [address], [place] [address] 09/25/2019 12:00:00 AM EDT eCW1 ([facility]) [facility] [place] [address] [place] [address], [place] [address] 09/03/2019 12:00:00 AM EST eCW1 ([facility] [place] [address] [place] [address], [place] [address] 08/15/2019 12:00:00 AM EST eCW1 ([facility]) [facility] [place] [address] [place] [address], [place] [address] 08/14/2019 12:00:00 AM EST eCW1 ([facility]) [facility] [place] [address] [place] [address] 08/03/2019 12:00:00 AM EST eCW1 ([facility]) [address] [place] [address] 08/01/2019 12:00:00 AM EST eCW1 ([facility]) [facility] [place] [address] [facility] [address] 07/27/2019 12:00:00 AM EST eCW1 ([facility]) [facility] [place] [address] [facility] [address] 07/26/2019 12:00:00 AM EST eCW1 ([facility]) [facility] [place] [address] [facility] [address] 07/24/2019 12:00:00 AM EST eCW1 ([facility]) [facility] [place] [address] [facility] [address] 06/29/2019 12:00:00 AM EST eCW1 ([facility]) Medications Medication Brand Name Start Date Product Form Dose Route Admi nistrative Instructions Pharmacy Instructions Status Indications Reaction Description Data Source(s) Vitamin B 12 1 MG/ML Injectable Solution Cyanocobalami n 1000 MCG/ML Cyanocobalamin 1000 MCG/ML 08/15/2019 12:00:00 AM EST 1.0 {ml} suspended Cyanocobalamin 1000 MCG/ML eCW1 ([facility]) Syringe 2-3 ML 3 ML Syringe 2-3 ML 3 ML 08/15/2019 12:00:00 AM EST suspended Syringe 2-3 ML 3 ML eCW1 ([facility]) Syringe 2-3 ML 3 ML Syringe 2-3 ML 3 ML 08/15/2019 12:00:00 AM EST active Syringe 2-3 ML 3 ML eCW1 ([facility]) Syringe 2-3 ML 3 ML Syringe 2-3 ML 3 ML 08/15/2019 12:00:00 AM EST active as directed eCW1 ([facility]) Syringe 2-3 ML 3 ML Syringe 2-3 ML 3 ML 08/15/2019 12:00:00 AM EST active as directed eCW1 ([facility]) Vitamin B12 1000 MCG Vitamin B12 1000 MCG 08/15/2019 12:00:00 AM EST active 1 tablet eCW1 ([facility]) Vitamin B12 1000 MCG Vitamin B12 1000 MCG 08/15/2019 12:00:00 AM ES T 1.0 {tablet} active Vitamin B12 1000 MCG eC W1 ([facility]) Vitamin B 12 1 MG/ML Injectable Solution Cyanocobalami n 1000 MCG/ML Cyanocobalamin 1000 MCG/ML 08/15/2019 12:00:00 AM EST active 1 ml eCW1 ([facility]) Vitamin B12 1000 MCG Vitamin B12 1000 MCG 08/15/2019 12:00:00 AM ES T 1.0 {tablet} active Vitamin B12 1000 MCG eC W1 ([facility]) Syringe 2-3 ML 3 ML Syringe 2-3 ML 3 ML 08/15/2019 12:00:00 AM EST suspended Syringe 2-3 ML 3 ML eCW1 ([facility]) Vitamin B12 1000 MCG Vitamin B12 1000 MCG 08/15/2019 12:00:00 AM ES T 1.0 {tablet} active Vitamin B12 1000 MCG eC W1 ([facility]) Vitamin B 12 1 MG/ML Injectable Solution Cyanocobalami n 1000 MCG/ML Cyanocobalamin 1000 MCG/ML 08/15/2019 12:00:00 AM EST active 1 ml eCW1 ([facility]) Vitamin B 12 1 MG/ML Injectable Solution Cyanocobalami n 1000 MCG/ML Cyanocobalamin 1000 MCG/ML 08/15/2019 12:00:00 AM EST 1.0 {ml} suspended Cyanocobalamin 1000 MCG/ML eCW1 ([facility]) Vitamin B12 1000 MCG Vitamin B12 1000 MCG 08/15/2019 12:00:00 AM EST active 1 tablet eCW1 ([facility]) Vitamin B12 1000 MCG Vitamin B12 1000 MCG 08/15/2019 12:00:00 AM EST active 1 tablet eCW1 ([facility]) Vitamin B 12 1 MG/ML Injectable Solution Cyanocobalami n 1000 MCG/ML Cyanocobalamin 1000 MCG/ML 08/15/2019 12:00:00 AM EST 1.0 {ml} active Cyanocobalamin 1000 MCG/ML eCW1 ([facility]) Omeprazole 40 MG Delayed Release Oral Capsule Omeprazole 40 MG 08/14/2019 12:00:00 AM EST active 1 capsul e 30 minutes before morning meal eCW1 ([facility]) Omeprazole 40 MG Delayed Release Oral Capsule Omeprazole 40 MG 08/14/2019 12:00:00 AM EST suspended Omepr azole 40 MG eCW1 ([facility]) Omeprazole 40 MG Delayed Release Oral Capsule Omeprazole 40 MG 08/14/2019 12:00:00 AM EST active 1 capsul e 30 minutes before morning meal eCW1 ([facility]) Omeprazole 40 MG Delayed Release Oral Capsule Omeprazole 40 MG 08/14/2019 12:00:00 AM EST suspended Omepr azole 40 MG eCW1 ([facility]) Omeprazole 40 MG Delayed Release Oral Capsule Omeprazole 40 MG 08/14/2019 12:00:00 AM EST active Omeprazo le 40 MG eCW1 ([facility]) Ergocalciferol 18954 UNT Oral Capsule [Drisdol] Dris[place] l 70676 UNIT Drisdol 58411 UNIT 07/27/2019 12:00:00 AM EST active 1 capsule eCW1 ([facility]) Ergocalciferol 24233 UNT Oral Capsule [Drisdol] Dris[place] l 11370 UNIT Drisdol 96449 UNIT 07/27/2019 12:00:00 AM EST 1.0 {capsule} susp ended Drisdol 02736 UNIT eCW1 ([facility]) Ergocalciferol 05723 UNT Oral Capsule [Drisdol] Dr[place] l 28605 UNIT Drisdol 27033 UNIT 07/27/2019 12:00:00 AM EST active 1 capsule eCW1 ([facility]) Ergocalciferol 03352 UNT Oral Capsule [Drisdol] Drisdo l 79896 UNIT Drisdol 83014 UNIT 07/27/2019 12:00:00 AM EST 1.0 {capsule} susp ended Drisdol 34431 UNIT eCW1 ([facility]) Ergocalciferol 51188 UNT Oral Capsule [Drisdol] Dris[place] l 85380 UNIT Drisdol 48868 UNIT 07/27/2019 12:00:00 AM EST 1.0 {capsule} acti ve Drisdol 52676 UNIT eCW1 ([facility]) Ergocalciferol 27462 UNT Oral Capsule [Drisdol] Drisdo l 22590 UNIT Drisdol 33401 UNIT 07/27/2019 12:00:00 AM EST active 1 capsule eCW1 ([facility]) Sulfamethoxazole 800 MG / Trimethoprim 1 60 MG Oral Tablet [Bactrim] Bactrim DS 800-160 MG Bactrim DS 800-160 MG 07/26/2019 12:00:00 AM EST active 1 tablet eCW1 ([facility]) Sulfamethoxazole 800 MG / Trimethoprim 1 60 MG Oral Tablet [Bactrim] Bactrim DS 800-160 MG Bactrim DS 800-160 MG 07/26/2019 12:00:00 AM EST suspended 1 tablet eCW1 ([facility]) Sertraline 50 MG Oral Tablet Sertraline HCl 50 MG Sertraline HCl 50 MG 07/24/2019 12:00:00 AM EST 1.0 {tablet} suspende d Sertraline HCl 50 MG eCW1 ([facility]) Sertraline 50 MG Oral Tablet Sertraline HCl 50 MG Sertraline HCl 50 MG 07/24/2019 12:00:00 AM EST active 1 tablet eCW1 ([facility]) Sertraline 50 MG Oral Tablet Sertraline HCl 50 MG Sertraline HCl 50 MG 07/24/2019 12:00:00 AM EST 1.0 {tablet} active Sertraline HCl 50 MG eCW1 ([facility]) Sertraline 50 MG Oral Tablet Sertraline HCl 50 MG Sertraline HCl 50 MG 07/24/2019 12:00:00 AM EST active 1 tablet eCW1 ([facility]) Sertraline 50 MG Oral Tablet Sertraline HCl 50 MG Sertraline HCl 50 MG 07/24/2019 12:00:00 AM EST active 1 tablet eCW1 ([facility]) Sertraline 50 MG Oral Tablet Sertraline HCl 50 MG Sertraline HCl 50 MG 07/24/2019 12:00:00 AM EST active 1 tablet eCW1 ([facility]) Sertraline 50 MG Oral Tablet Sertraline HCl 50 MG Sertraline HCl 50 MG 07/24/2019 12:00:00 AM EST 1.0 {tablet} suspende d Sertraline HCl 50 MG eCW1 ([facility]) Insurance Providers Payer name Policy type / Coverage type Policy ID Covered democrat ID Covered democrat's relationship to almanza Policy Almanza Plan Information [place]AST HUMANA [id number] 2 [id number] HU[place]NA [place] [id number] S [id number] FOR LIFE [id number] SP [id number] [place]/307 [id number] SELF PAY ONLY [facility] [id number] SP [id number] BCBS [place] PPO 302/307 [id number] SP [id number] [employer]CELLUS BCBS B [id number] S [id number] ANSI-Pixeon [id number] ANSI-Commercial [id number] [place] 302/307 [id number] SP [id number] [place] 302/307 [id number] 2 [id number] [facility] INS NO FAULT [id number] SP [id number] ANSI-[employer]eon [id number] ANSI-[employer]eon [id number] [employer] [id number] [employer] [id number] ANSI-Commercial [id number] ANSI-Commercial [id number] ANSI-Commercial [id number] ANSI-Commercial [id number] Problems, Conditions, and Diagnoses Code Display Name Description Problem Type Effective Dates Data Source(s) N92.0 291747777 Menorrhagia with regular cycle Problem 09/03/2019 12:00:00 AM EST eCW1 ([facility]) N92.0 [id number] Menorrhagia with regular cycle Problem 09/03/2019 12:00:00 AM EST eCW1 ([facility]) R01.1 [id number] Cardiac murmur Problem 08/15/2019 12:00:00 A M EST eCW1 ([facility]) F41.9 [id number] Anxiety Problem 07/24/2019 12:00:00 AM ES T eCW1 ([facility]) F32.2 Severe major depression, single episode, without psychotic features Current severe episode of major depressive disorder without psychotic features without prior episode Problem 07/24/2019 12:00:00 AM EST eCW1 ([facility]) F41.9 [id number] Anxiety Problem 07/24/2019 12:00:00 AM ES T eCW1 ([facility]) F32.2 Severe major depression, single episode, without psychotic features Current severe episode of major depressive disorder without psychotic features without prior episode Problem 07/24/2019 12:00:00 AM EST eCW1 ([facility]) Surgeries/Procedures Procedure Description Date Indications Data Source(s) Influenza A+B 09/03/2019 12:00:00 AM EST eCW1 ([facility]) URINE-NO MICRO 08/14/2019 12:00:00 AM EST eCW1 ([facility]) Results ID Date Data Source [id number] 05/29/2020 12:00:00 AM EST [facility] Name Value Range Interpretation Code Description Data Folrinda rce(s) Supporting Document(s) SARS coronavirus 2 Ag [facility] This lab was ordered by [facility] and reported by [facility]. ID Date Data Source [id number] 10/05/2019 04:09:00 AM EDT [facility] Name Value Range Interpretation Code Description Data Florinda rce(s) Supporting Document(s) SARS CORONAVIRUS 2 RNA [facility] This lab was ordered by [facility] and reported by [facility]. ID Date Data Source VITAMIN D 25-HYDROXY 09/03/2019 12:00:00 AM EST eCW1 ([facility]) Name Value Range Interpretation Code Description Data Florinda rce(s) Supporting Document(s) 28.0 30.0-100.0 TOTAL 25(OH) VITAMIN D eC W1 ([facility]) ID Date Data Source VITAMIN B12 LEVEL 09/03/2019 12:00:00 AM EST eCW1 ([facility]) Name Value Range Interpretation Code Description Data Florinda rce(s) Supporting Document(s) 3091 520-477 VITAMIN B12 LEVEL eCW1 ([facility]) ID Date Data Source TOTAL IRON BINDING CAPACIT 09/03/2019 12:00:00 AM EST eCW1 ( [facility]) Name Value Range Interpretation Code Description Data Florinda rce(s) Supporting Document(s) 425 250-450 TOTAL IRON BINDING CAPACI TY eCW1 ([facility]) 29 50-170 IRON (FE) eCW1 ([facility]) 6.8 13.2-45.0 PERCENT SATURATION eCW1 ([facility]) ID Date Data Source FERRITIN 09/03/2019 12:00:00 AM EST eCW1 ([facility]) Name Value Range Interpretation Code Description Data Florinda rce(s) Supporting Document(s) 67 6-252 FERRITIN eCW1 ([facility]) ID Date Data Source CBC - Complete Blood Count 09/03/2019 12:00:00 AM EST eCW1 ( [facility]) Name Value Range Interpretation Code Description Data Florinda rce(s) Supporting Document(s) 10.4 12.0-15.5 HEMOGLOBIN eCW1 ([facility]) 6.7 4.0-10.0 WHITE BLOOD COUNT eCW1 ([facility]) 4.83 4.00-5.40 RED BLOOD COUNT eCW1 ([facility]) 21.5 27.0-33.0 MEAN CORPUSCULAR HEMOGLOB IN eCW1 ([facility]) 28.6 32.0-36.5 MEAN CORPUSCULAR HGB CONC eCW1 ([facility]) 36.4 36.0-47.0 HEMATOCRIT eCW1 ([facility]) 75.4 80.0-96.0 MEAN CORPUSCULAR VOLUME e CW1 ([facility]) 399 150-450 PLATELET COUNT, AUTOMATED eCW1 ([facility]) 22.1 11.5-14.5 RED CELL DISTRIBUTION WID TH eCW1 ([facility]) ID Date Data Source LIPASE 08/14/2019 12:00:00 AM EST eCW1 ([facility]) Name Value Range Interpretation Code Description Data Florinda rce(s) Supporting Document(s) 214 31-393 LIPASE eCW1 ([facility]) ID Date Data Source VITB12 & FOL 08/14/2019 12:00:00 AM EST eCW1 ([facility]) Name Value Range Interpretation Code Description Data Florinda rce(s) Supporting Document(s) 10.2 FOLATE eCW1 ([facility]) 288 VITAMIN B12 LEVEL eCW1 ([facility]) ID Date Data Source Comprehensive Metabolic Profile (CMP) 08/14/2019 12:00:00 AM EST eCW1 ([facility]) Name Value Range Interpretation Code Description Data Florinda rce(s) Supporting Document(s) 0.96 0.55-1.30 CREATININE FOR GFR eCW1 ([facility]) 14 7-18 BLOOD UREA NITROGEN eCW1 ([facility]) 79 70-100 GLUCOSE, FASTING eCW1 ([facility]) 141 136-145 SODIUM LEVEL eCW1 ([facility]) > 60.0 >58 GLOMERULAR FILTRATION RATE eCW 1 ([facility]) 4.1 3.5-5.1 POTASSIUM SERUM eCW1 ([facility]) 106 98-107 CHLORIDE LEVEL eCW1 ([facility]) 19 7-37 AST/SGOT eCW1 ([facility]) 9.3 8.5-10.1 CALCIUM LEVEL eCW1 ([facility]) 29 21-32 CARBON DIOXIDE LEVEL eCW1 ([facility]) 22 12-78 ALT/SGPT eCW1 ([facility]) 91 45-117 ALKALINE PHOSPHATASE eCW1 ([facility]) 1.11 1.00-1.93 ALBUMIN/GLOBULIN RATIO eCW1 ([facility]) 4.0 3.2-5.2 ALBUMIN eCW1 ([facility]) 7.6 6.4-8.2 TOTAL PROTEIN eCW1 ([facility]) 0.2 0.2-1.0 BILIRUBIN,TOTAL eCW1 ([facility]) ID Date Data Source AMYLASE 08/14/2019 12:00:00 AM EST eCW1 ([facility]) Name Value Range Interpretation Code Description Data Florinda rce(s) Supporting Document(s) 38 25-115 AMYLASE eCW1 ([facility]) ID Date Data Source Urinalysis, no micro 08/14/2019 12:00:00 AM EST eCW1 ([facility]) Name Value Range Interpretation Code Description Data Florinda rce(s) Supporting Document(s) 5 5.0 - 9.0 pH eCW1 ([facility]) 1.025 1.002 - 1.035 Spec gravity eCW1 ([facility]) trace Negative - Leukocyte eCW1 ([facility]) - Negative - Nitrate eCW1 ([facility]) - Normal - mg/dl Urobili eCW1 ([facility]) - Negative - mg/dl Protein eCW1 ([facility]) - Negative - mg/dl Ketones eCW1 ([facility]) - Negative - mg/dl Glucose eCW1 ([facility]) yes Internal QC Acceptable (Y/N) e CW1 ([facility]) trace Negative - Blood eCW1 ([facility]) - Negative - Bilirubin eCW1 ([facility]) ID Date Data Source CBC 07/24/2019 12:00:00 AM EST eCW1 ([facility]) Name Value Range Interpretation Code Description Data Florinda rce(s) Supporting Document(s) 8.5 4.0-10.0 WHITE BLOOD COUNT eCW1 ([facility]) 9.8 12.0-15.5 HEMOGLOBIN eCW1 ([facility]) 4.74 4.00-5.40 RED BLOOD COUNT eCW1 ([facility]) 35.2 36.0-47.0 HEMATOCRIT eCW1 ([facility]) 18.7 11.5-14.5 RED CELL DISTRIBUTION WID TH eCW1 ([facility]) 20.7 27.0-33.0 MEAN CORPUSCULAR HEMOGLOB IN eCW1 ([facility]) 74.3 80.0-96.0 MEAN CORPUSCULAR VOLUME e CW1 ([facility]) 430 150-450 PLATELET COUNT, AUTOMATED eCW1 ([facility]) 27.8 32.0-36.5 MEAN CORPUSCULAR HGB CONC eCW1 ([facility]) Procedure Social History Code Duration Value Status Description Data Source(s ) Smoking 06/17/2020 12:00:00 AM EST Never Smoker completed Never S moker eCW1 ([facility]) Smoking 06/17/2020 12:00:00 AM EST Never Smoker completed Never S moker eCW1 ([facility]) Smoking 04/10/2020 12:00:00 AM EDT Never Smoked Cigarettes com pleted Never Smoked Cigarettes MEDENT ([facility]) Smoking 09/03/2019 12:00:00 AM EST Never Smoker completed Never S moker eCW1 ([facility]) Vital Signs ID Date Data Source UNK Name Value Range Interpretation Code Description Data Source(s) Diastolic blood pressure 76 mm[Hg] 76 mm[Hg] eCW1 ([facility]) Systolic blood pressure 128 mm[Hg] 128 mm[Hg] e CW1 ([facility]) Body temperature 98.4 [degF] 98.4 [degF] eCW1 ( [facility]) Respiratory rate 18 /min 18 /min eCW1 ([facility]) Heart rate 105 /min 105 /min eCW1 ([facility]) Body mass index (BMI) [Ratio] 33.40 kg/m2 33.40 kg/m2 eCW1 ([facility]) Body height [in_i] eCW1 ([facility]) Body weight 191.6 [lb_av] 191.6 [lb_av] eCW1 ([facility]) Body mass index (BMI) [Ratio] 31.0 kg/m2 31.0 k g/m2 MEDENT ([facility]) Body height 63 [in_i] 63 [in_i] MEDENT ([facility]) 5'3" Body weight 175.00 [lb_av] 175.00 [lb_av] MEDEN T ([facility]) Body temperature 98.2 [degF] 98.2 [degF] MEDENT ([facility]) Oxygen saturation in Arterial blood by Pulse oximetry 97 % 97 % MEDENT ([facility]) Respiratory rate 14 /min 14 /min MEDENT ( [facility]) Heart rate 102 /min 102 /min MEDENT ([facility]) Diastolic blood pressure 105 mm[Hg] 105 mm[Hg] MEDENT ([facility], [facility]) Systolic blood pressure 152 mm[Hg] 152 mm[Hg] M EDENT ([facility], [facility]) Diastolic blood pressure 74 mm[Hg] 74 mm[Hg] eCW1 ([facility]) Systolic blood pressure 124 mm[Hg] 124 mm[Hg] e CW1 ([facility]) Body temperature 98 [degF] 98 [degF] eCW1 ([facility]) Respiratory rate 18 /min 18 /min eCW1 ([facility]) Heart rate 96 /min 96 /min eCW1 ([facility]) Body mass index (BMI) [Ratio] 32.01 kg/m2 32.01 kg/m2 W1 ([facility]) Body height [in_us] eCW1 ([facility]) Body weight Measured 183.6 [lb_av] 183.6 [lb_av ] eCW1 ([facility]) Diastolic blood pressure 70 mm[Hg] 70 mm[Hg] eCW1 ([facility]) Systolic blood pressure 110 mm[Hg] 110 mm[Hg] e CW1 ([facility]) Body temperature 97.1 [degF] 97.1 [degF] eCW1 ( [facility]) Respiratory rate 18 /min 18 /min eCW1 ([facility]) Heart rate 88 /min 88 /min eCW1 ([facility]) Body mass index (BMI) [Ratio] 31.97 kg/m2 31.97 kg/m2 W1 ([facility]) Body height [in_us] eCW1 ([facility]) Body weight Measured 183.4 [lb_av] 183.4 [lb_av ] eCW1 ([facility]) Diastolic blood pressure 78 mm[Hg] 78 mm[Hg] eCW1 ([facility]) Systolic blood pressure 118 mm[Hg] 118 mm[Hg] e CW1 ([facility]) Body temperature 97.2 [degF] 97.2 [degF] eCW1 ( [facility]) Respiratory rate 18 /min 18 /min eCW1 ([facility]) Heart rate 94 /min 94 /min eCW1 ([facility]) Body mass index (BMI) [Ratio] 5235.94 kg/m2 523 5.94 kg/m2 eCW1 ([facility]) Body height [in_us] eCW1 ([facility]) Body weight Measured 186.2 [lb_av] 186.2 [lb_av ] eCW1 ([facility]) Patient Treatment Plan of Care Planned Activity Planned Date Details Description Data Source (s) Vitamin B12 1000 MCG 08/15/2019 12:00:00 AM EST eCW1 ([facility]) Vitamin B12 1000 MCG 08/15/2019 12:00:00 AM EST eCW1 ([facility]) Syringe 2-3 ML 3 ML 08/15/2019 12:00:00 AM EST eCW1 ([facility]) Vitamin B 12 1 MG/ML Injectable Solution 08/15/2019 12:00:00 AM EST eCW1 ([facility]) Vitamin B12 1000 MCG 08/15/2019 12:00:00 AM EST eCW1 ([facility]) Omeprazole 40 MG Delayed Release Oral Capsule 08/14/2019 12:00:00 A M EST eCW1 ([facility]) Ergocalciferol 51385 UNT Oral Capsule [Drisdol] 07/27/2019 12:00:00 AM EST eCW1 ([facility]) Ergocalciferol 41087 UNT Oral Capsule [Drisdol] 07/27/2019 12:00:00 AM EST eCW1 ([facility]) Sulfamethoxazole 800 MG / Trimethoprim 160 MG Oral Tab let [Bactrim] 07/26/2019 12:00:00 AM EST eCW1 ([facility]) Sertraline 50 MG Oral Tablet 07/24/2019 12:00:00 AM EST eCW1 ([facility]) Sertraline 50 MG Oral Tablet 07/24/2019 12:00:00 AM EST eCW1 ([facility]) Sertraline 50 MG Oral Tablet 07/24/2019 12:00:00 AM EST eCW1 ([facility])
[2020-08-22 18:00] LABS: BASO # 0.1 10^3/uL (0.0-0.2); BASO % 0.6 % (0.0-1.0); EOS # 0.2 10^3/uL (0.0-0.5); EOS % 1.6 % (0.0-3.0); HEMATOCRIT 30.9 % (36.0-47.0); HEMOGLOBIN 8.7 g/dl (12.0-15.5); LYMPH # 2.3 10^3/uL (1.5-5.0); LYMPH % 24.1 % (24.0-44.0); MEAN CORPUSCULAR HGB CONC 28.2 g/dl (32.0-36.5); MONO # 0.4 10^3/uL (0.0-0.8); MONO % 4.6 % (0.0-5.0); NEUTROPHILS # 6.6 10^3/uL (1.5-8.5); NEUTROPHILS % 68.7 % (36.0-66.0); PLATELET COUNT, AUTOMATED 382 10^3/uL (150-450); RED BLOOD COUNT 4.35 10^6/uL (4.00-5.40); WHITE BLOOD COUNT 9.6 10^3/uL (4.0-10.0)
[2020-08-22 18:04] LABS: INR 0.94; PROTHROMBIN TIME 12.8 SECONDS (12.5-14.3)
[2020-08-22 18:17] LABS: ALBUMIN 4.2 GM/DL (3.2-5.2); ALT/SGPT 24 U/L (12-78); BILIRUBIN,DIRECT 0.1 MG/DL (0.0-0.2); BILIRUBIN,TOTAL 0.5 MG/DL (0.2-1.0); BLOOD UREA NITROGEN 12 MG/DL (7-18); CARBON DIOXIDE LEVEL 30 MEQ/L (21-32); CHLORIDE LEVEL 104 MEQ/L (98-107); CK-MB VALUE MASS 1.7 NG/ML (<3.6); CPK CREATINE PHOSPHOKINASE 160 U/L (26-192); CREATININE FOR GFR 0.98 MG/DL (0.55-1.30); FREE T4 0.86 NG/DL (0.76-1.46); GLOMERULAR FILTRATION RATE > 60.0 (>58); GLUCOSE, FASTING 129 MG/DL (70-100); LIPASE 201 U/L (73-393); MB/CK RELATIVE INDEX 1.06 (< OR =4); POTASSIUM SERUM 3.5 MEQ/L (3.5-5.1); SODIUM LEVEL 139 MEQ/L (136-145); TOTAL PROTEIN 7.6 GM/DL (6.4-8.2); TROPONIN I < 0.02 NG/ML (< 0.10)
--- NOTE | 2020-08-22 18:44 | REP ---
INDICATION: CHEST PAIN COMPARISON: 10/05/2019 and 04/03/2019. TECHNIQUE: PA/Lateral FINDINGS: Lungs: Clear, no infiltrate. Heart: Normal in size. Mediastinum: Mediastinal silhouette unremarkable. Pleural angles: Unremarkable.. Bones and soft tissues: Unremarkable. IMPRESSION: No acute pulmonary disease. <Electronically signed by Gerald Nash > 08/22/20 [id number]
[2020-08-22] MEDS ORDERED: ISOVUE-370 76% 100ML VIAL As Ordered ONE (19:36)
--- NOTE | 2020-08-22 20:01 | REPVR ---
PROCEDURE INFORMATION: Exam: CT Angiography Chest With Contrast Exam date and time: 08/22/2020 7:39 PM Age: 44 years old Clinical indication: Chest pain; Type not specified; Additional info: Chest pain, SOB TECHNIQUE: Imaging protocol: Computed tomographic angiography of the chest with contrast. 3D rendering (Not supervised by radiologist): MIP and/or 3D reconstructed images were created by the technologist. Radiation optimization: All CT scans at this facility use at least one of these dose optimization techniques: automated exposure control; mA and/or kV adjustment per patient size (includes targeted exams where dose is matched to clinical indication); or iterative reconstruction. Contrast material: ISOVUE 370; Contrast volume: 75 ml; Contrast route: INTRAVENOUS (IV); COMPARISON: UT Chest, 2 view PA, Lat 08/22/2020 5:39 PM FINDINGS: Pulmonary arteries: There are no pulmonary emboli. Aorta: There is no aortic dissection or aneurysm. Lungs: Unremarkable. No consolidation. No masses. Pleural spaces: Unremarkable. No pneumothorax. No pleural effusion. Heart: Unremarkable. No cardiomegaly. No pericardial effusion. Lymph nodes: Calcified left hilar and mediastinal lymph nodes. Stomach and bowel: This patient is status post gastric bypass surgery. Bones/joints: Unremarkable. No acute fracture. Soft tissues: Unremarkable. IMPRESSION: 1. This patient is status post gastric bypass surgery. 2. There is no aortic dissection or aneurysm. 3. There are no pulmonary emboli. 4. No acute pulmonary parenchymal infiltrates. Electronically signed by: Juan Ratliff On 08/22/2020 20:00:56 PM
--- NOTE | 2020-08-22 20:32 | ECGEPIP ---
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
[2020-08-22 23:14] LABS: CK-MB VALUE MASS 1.2 NG/ML (<3.6); CPK CREATINE PHOSPHOKINASE 126 U/L (26-192); MB/CK RELATIVE INDEX 0.95 (< OR =4); TROPONIN I < 0.02 NG/ML (< 0.10)
[2020-08-22 23:45] VITALS: BP 142/75
--- NOTE | 2020-08-23 06:45 | ECGEPIP ---
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
== END 2020-08-23 00:22 | disposition home or self-care (01) ==
LOC: M ED 16:37
DX: R07.9 Chest pain, unspecified (principal); D51.9 Vitamin B12 deficiency anemia, unspecified; E55.9 Vitamin D deficiency, unspecified; F32.9 Major depressive disorder, single episode, unspecified; H35.30 Unspecified macular degeneration; Z98.84 Bariatric surgery status; Z79.899 Other long term (current) drug therapy
CPT/HCPCS: 71046; 71275; 80048; 80076; 82550; 82553; 83690; 84439; 84443; 84484; 85025; 85610; 85730; 93005; 93041; 94760; 99285; G0463; Q9967

== ENCOUNTER 2020-10-07 09:19 | Emergency (ER) | payer OTHER ==
[~2020-10-07] VITALS: Ht 160 cm; Wt 81.8 kg
[~2020-10-07 09:19] MED LIST changes: +B-122500 PO; +vitamin d
[2020-10-07] MEDS ORDERED: ACETAMINOPHEN 325 MG TAB PO ONE (11:05)
[2020-10-07 11:44] LABS: BASO % 0.5 % (0.0-1.0); EOS # 0.4 10^3/uL (0.0-0.5); EOS % 4.3 % (0.0-3.0); HEMATOCRIT 33.3 % (36.0-47.0); HEMOGLOBIN 9.6 g/dl (12.0-15.5); LYMPH # 1.5 10^3/uL (1.5-5.0); LYMPH % 16.9 % (24.0-44.0); MEAN CORPUSCULAR HEMOGLOBIN 20.7 pg (27.0-33.0); MEAN CORPUSCULAR HGB CONC 28.8 g/dl (32.0-36.5); MEAN CORPUSCULAR VOLUME 71.9 fl (80.0-96.0); MONO # 0.6 10^3/uL (0.0-0.8); MONO % 7.3 % (2.0-8.0); NEUTROPHILS # 6.2 10^3/uL (1.5-8.5); NEUTROPHILS % 70.8 % (36.0-66.0); PLATELET COUNT, AUTOMATED 381 10^3/uL (150-450); RED BLOOD COUNT 4.63 10^6/uL (4.00-5.40); WHITE BLOOD COUNT 8.7 10^3/uL (4.0-10.0)
[2020-10-07 11:57] LABS: PARTIAL THROMBOPLASTIN TIME 27.9 SECONDS (24.2-38.5); PROTHROMBIN TIME 13.4 SECONDS (12.5-14.3)
[2020-10-07 12:00] LABS: D-DIMER QUANT 395.21 ng/ml (<500)
--- NOTE | 2020-10-07 12:05 | REP ---
INDICATION: cough, sob. COMPARISON: 08/22/2020. TECHNIQUE: SINGLE PORTABLE AP VIEW OF THE CHEST WAS PERFORMED. FINDINGS: THERE IS NO ACUTE INFILTRATE OR PULMONARY EDEMA. LUNGS ARE CLEAR. HEART IS NOT SIGNIFICANTLY ENLARGED. MEDIASTINAL SILHOUETTE IS UNREMARKABLE. THE VISUALIZED OSSEOUS STRUCTURES ARE INTACT. IMPRESSION: NO ACUTE PULMONARY DISEASE. <Electronically signed by Gerald Nash > 10/07/20 [id number]
[2020-10-07 12:12] LABS: ALBUMIN 3.9 GM/DL (3.2-5.2); ALT/SGPT 21 U/L (12-78); BILIRUBIN,DIRECT < 0.1 MG/DL (0.0-0.2); BILIRUBIN,TOTAL 0.3 MG/DL (0.2-1.0); BLOOD UREA NITROGEN 8 MG/DL (7-18); CALCIUM LEVEL 8.5 MG/DL (8.5-10.1); CARBON DIOXIDE LEVEL 28 MEQ/L (21-32); CHLORIDE LEVEL 107 MEQ/L (98-107); GLOMERULAR FILTRATION RATE > 60.0 (>58); GLUCOSE, FASTING 88 MG/DL (70-100); LIPASE 162 U/L (73-393); POTASSIUM SERUM 3.9 MEQ/L (3.5-5.1); SODIUM LEVEL 140 MEQ/L (136-145); TOTAL PROTEIN 7.7 GM/DL (6.4-8.2)
[2020-10-07 13:32] VITALS: BP 138/82
== END 2020-10-07 13:59 | disposition home or self-care (01) ==
LOC: M ED 09:19
DX: D50.9 Iron deficiency anemia, unspecified (principal); R06.02 Shortness of breath; B34.8 Other viral infections of unspecified site; J45.909 Unspecified asthma, uncomplicated; Z98.84 Bariatric surgery status; Z79.899 Other long term (current) drug therapy

== ENCOUNTER 2021-07-15 11:14 | Emergency (ER) | payer OTHER ==
[~2021-07-15] VITALS: Ht 160 cm; Wt 81.8 kg
[~2021-07-15 11:14] MED LIST changes: +VITAD400CA FT
[2021-07-15] MEDS ORDERED: NS 1,000 ML IV ONE (14:40)
[2021-07-15 15:32] LABS: BASO % 0.4 % (0.0-1.0); EOS # 0.1 10^3/uL (0.0-0.5); EOS % 1.4 % (0.0-3.0); HEMATOCRIT 41.7 % (36.0-47.0); LYMPH # 0.8 10^3/uL (1.5-5.0); LYMPH % 15.1 % (24.0-44.0); MEAN CORPUSCULAR HEMOGLOBIN 30.9 pg (27.0-33.0); MEAN CORPUSCULAR HGB CONC 33.6 g/dl (32.0-36.5); MEAN CORPUSCULAR VOLUME 92.1 fl (80.0-96.0); MONO # 0.5 10^3/uL (0.0-0.8); MONO % 10.4 % (2.0-8.0); NEUTROPHILS # 3.8 10^3/uL (1.5-8.5); NEUTROPHILS % 72.5 % (36.0-66.0); PLATELET COUNT, AUTOMATED 226 10^3/uL (150-450); RED BLOOD COUNT 4.53 10^6/uL (4.00-5.40); WHITE BLOOD COUNT 5.2 10^3/uL (4.0-10.0)
[2021-07-15 15:58] LABS: ALBUMIN 3.9 GM/DL (3.2-5.2); ALT/SGPT 24 U/L (12-78); BILIRUBIN,TOTAL 0.4 MG/DL (0.2-1.0); BLOOD UREA NITROGEN 9 MG/DL (7-18); CALCIUM LEVEL 9.1 MG/DL (8.5-10.1); CARBON DIOXIDE LEVEL 28 MEQ/L (21-32); CHLORIDE LEVEL 108 MEQ/L (98-107); CREATININE FOR GFR 0.83 MG/DL (0.55-1.30); GLOMERULAR FILTRATION RATE > 60.0 (>58); GLUCOSE, FASTING 87 MG/DL (70-100); POTASSIUM SERUM 3.7 MEQ/L (3.5-5.1); SODIUM LEVEL 142 MEQ/L (136-145); TOTAL PROTEIN 7.2 GM/DL (6.4-8.2)
[2021-07-15 15:59] LABS: HCG, SERUM QUALITATIVE NEGATIVE (NEGATIVE)
[2021-07-15 16:01] LABS: RSV AMPLIFICATION NEGATIVE (NEGATIVE)
[2021-07-15] MEDS ORDERED: ACETAMINOPHEN TAB 650MG DOSE (2X325MG) PO ONE (16:30)
--- NOTE | 2021-07-15 16:50 | REP ---
INDICATION: chest pain COMPARISON: 10/07/2020 TECHNIQUE: PA and lateral. FINDINGS: The mediastinum and cardiac silhouette are normal. The lung sandhu are clear and without acute consolidation, effusion, or pneumothorax. The skeletal structures are intact and normal. IMPRESSION: No focal consolidation or effusion. <Electronically signed by Luis Felipe Sheriff > 07/15/21 [id number]
[2021-07-15 16:58] VITALS: BP 168/94
[2021-07-15] MEDS ORDERED: AMLO1TAB24 PO (17:10)
[2021-07-15] MEDS ORDERED: TESS100C PO (17:10)
[2021-07-15] MEDS ORDERED: VENTAER INH (17:10)
[2021-07-15] MEDS ORDERED: amLODIPine 5 MG TAB PO ONE (17:15)
--- NOTE | 2021-07-15 19:44 | ECGEPIP ---
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
== END 2021-07-15 17:38 | disposition home or self-care (01) ==
LOC: M ED 11:14
DX: U07.1 COVID-19 (principal); I10 Essential (primary) hypertension; M94.0 Chondrocostal junction syndrome [Tietze]; Z20.822 Contact with and (suspected) exposure to COVID-19; D64.9 Anemia, unspecified; Z98.84 Bariatric surgery status; Z79.899 Other long term (current) drug therapy

== ENCOUNTER 2021-07-17 11:40 | Emergency (ER) | payer OTHER ==
[~2021-07-17] VITALS: Ht 160 cm; Wt 81.2 kg
[~2021-07-17 11:40] MED LIST changes: +AMLO1TAB24 PO; +VENTAER INH
[2021-07-17] MEDS ORDERED: IBUP80TA PO (11:57)
[2021-07-17] MEDS ORDERED: ACET-683 PO (11:57)
[2021-07-17] MEDS ORDERED: ACETAMINOPHEN 325 MG TAB PO ONE (13:20)
[2021-07-17] MEDS ORDERED: NS 1,000 ML IV ONE ×2 (13:20→16:05)
[2021-07-17] MEDS ORDERED: diphenhydrAMINE 50MG/ML VIAL (J1200) IV STA (13:20)
[2021-07-17] MEDS ORDERED: dexameTHASONE 20MG/5ML VIAL (J1100 PER 1MG) IV ONE (13:20)
[2021-07-17] MEDS ORDERED: METOCLOPRAMIDE INJ 10MG/2ML VIAL (J2765 PER 1) IV ONE (13:20)
[2021-07-17 14:11] LABS: BASO % 0.3 % (0.0-1.0); EOS # 0.1 10^3/uL (0.0-0.5); EOS % 1.3 % (0.0-3.0); HEMATOCRIT 43.3 % (36.0-47.0); HEMOGLOBIN 14.4 g/dl (12.0-15.5); LYMPH # 0.9 10^3/uL (1.5-5.0); LYMPH % 12.2 % (24.0-44.0); MEAN CORPUSCULAR HEMOGLOBIN 30.2 pg (27.0-33.0); MEAN CORPUSCULAR HGB CONC 33.3 g/dl (32.0-36.5); MEAN CORPUSCULAR VOLUME 90.8 fl (80.0-96.0); MONO # 0.2 10^3/uL (0.0-0.8); MONO % 2.7 % (2.0-8.0); NEUTROPHILS # 5.8 10^3/uL (1.5-8.5); NEUTROPHILS % 83.2 % (36.0-66.0); PLATELET COUNT, AUTOMATED 250 10^3/uL (150-450); RED BLOOD COUNT 4.77 10^6/uL (4.00-5.40)
[2021-07-17 14:30] LABS: ERYTHROCYTE SEDIMENTATION RATE 16 mm/hr (0-20)
[2021-07-17 14:43] LABS: BLOOD UREA NITROGEN 8 MG/DL (7-18); CALCIUM LEVEL 8.7 MG/DL (8.5-10.1); CARBON DIOXIDE LEVEL 24 MEQ/L (21-32); CHLORIDE LEVEL 107 MEQ/L (98-107); CREATININE FOR GFR 0.67 MG/DL (0.55-1.30); GLOMERULAR FILTRATION RATE > 60.0 (>58); GLUCOSE, FASTING 131 MG/DL (70-100); MAGNESIUM LEVEL 1.9 MG/DL (1.8-2.4); POTASSIUM SERUM 3.6 MEQ/L (3.5-5.1); SODIUM LEVEL 138 MEQ/L (136-145)
[2021-07-17 15:01] LABS: HCG, SERUM QUALITATIVE NEGATIVE (NEGATIVE)
--- NOTE | 2021-07-17 15:33 | REP ---
INDICATION: severe GILES, COVID+ COMPARISON: 06/24/2018 TECHNIQUE: Axial noncontrast images from the skull base to the vertex with coronal reformations. This CT examination was performed using the following dose reduction techniques: Automated exposure control, adjustment of mA and/or kv according to the patient's size, and use of iterative reconstruction technique. FINDINGS: The ventricles, sulci, and cisterns are normal in position and appearance. Nash-white differentiation is maintained. No acute intracranial hemorrhage, mass/mass effect, pathology or trauma/injury. No evidence for acute infarction. No extra-axial fluid collection. Calvarium is intact. Paranasal sinuses and mastoid air cells are clear. IMPRESSION: Normal noncontrast head CT. No evidence for acute intracranial pathology or trauma/injury. <Electronically signed by Luis Felipe Sheriff > 07/17/21 1525
[2021-07-17] MEDS ORDERED: KETOROLAC 30 MG/ML 1ML VIAL IV ONE (15:40)
[2021-07-17] MEDS ORDERED: MORPHINE 4 MG/ML 1ML VIAL/SYRINGE (J2270) IV ONE (16:05)
[2021-07-17] MEDS ORDERED: KETO10TAB PO (18:23)
[2021-07-17] MEDS ORDERED: ONDA4TAB6 PO (18:26)
[2021-07-17 19:00] VITALS: BP 115/72
== END 2021-07-17 19:40 | disposition home or self-care (01) ==
LOC: M ED 11:40
DX: U07.1 COVID-19 (principal); R51.9 Headache, unspecified; Z98.84 Bariatric surgery status; Z79.899 Other long term (current) drug therapy
CPT/HCPCS: 36415; 70450; 80048; 83735; 84703; 85025; 85652; 86140; 96361; 96374; 96375; 99284; J1100; J1200; J1885; J2270; J2765

== ENCOUNTER → 2022-04-05 | Outpatient (REF) | payer OTHER ==
[~2022-04-05] MED LIST changes: +ACET-683 PO; +COLA100C5 PO; +HYDR-3363 PO; +IBUP80TA PO; +KETO10TAB PO; +ONDA4TAB6 PO; +PERCOCET PO; +POTA-151 PO; +PROV10TA PO
== END ==
LOC: M SFHCWAGY 13:09
PROVIDERS: ATTEND Obstetrics & Gynecology
DX: N93.9 Abnormal uterine and vaginal bleeding, unspecified (principal)

== ENCOUNTER → 2022-04-05 | Outpatient (CLI) | payer OTHER | LOC: M LABSMTC 10:20 | PROVIDERS: ATTEND Anesthesiology | DX: Z01.812 Encounter for preprocedural laboratory examination (principal); Z20.822 Contact with and (suspected) exposure to COVID-19 ==

== ENCOUNTER 2022-04-07 06:11 | Day surgery (SDC) | payer OTHER ==
[~2022-04-07] VITALS: Ht 162.6 cm; Wt 85.4 kg
[~2022-04-07 06:11] MED LIST changes: -COLA100C5 PO; -PERCOCET PO; +ceFAZolin SOD 2 GM in IV 1 EA IV ONE
[2022-04-07] MEDS ORDERED: LR 1,000 ML IV SCH ×3 (06:45→10:00)
[2022-04-07 06:53] LABS: HEMATOCRIT 37.6 % (36.0-47.0); HEMOGLOBIN 12.5 g/dl (12.0-15.5); MEAN CORPUSCULAR HEMOGLOBIN 31.6 pg (27.0-33.0); MEAN CORPUSCULAR HGB CONC 33.2 g/dl (32.0-36.5); MEAN CORPUSCULAR VOLUME 94.9 fl (80.0-96.0); PLATELET COUNT, AUTOMATED 251 10^3/uL (150-450); RED BLOOD COUNT 3.96 10^6/uL (4.00-5.40); WHITE BLOOD COUNT 5.5 10^3/uL (4.0-10.0)
[2022-04-07] MEDS ORDERED: METHYLENE BLUE 0.5% (5MG/ML) 10 ML AMP (PROVAYBLUE) As Ordered ONE (07:11)
[2022-04-07] MEDS ORDERED: BUPIVACAINE HCL 0.25% 30ML VIAL As Ordered ONE (07:11)
[2022-04-07 07:22] LABS: HCG, SERUM QUALITATIVE NEGATIVE (NEGATIVE)
[2022-04-07] MEDS ORDERED: METOCLOPRAMIDE INJ 10MG/2ML VIAL (J2765 PER 1) As Ordered ONE (08:10)
[2022-04-07] MEDS ORDERED: propofoL 200 MG/20 ML VIAL As Ordered ONE (08:10)
[2022-04-07] MEDS ORDERED: fentaNYL 250 MCG/5 ML INJECTION As Ordered ONE (08:10)
[2022-04-07] MEDS ORDERED: ACETAMINOPHEN 1000MG 100ML IV BTL (OFIRMEV) (J0131 PER 10MG) As Ordered ONE (08:10)
[2022-04-07] MEDS ORDERED: ROCURONIUM BROMIDE 50 MG/5 ML VIAL As Ordered ONE (08:10)
[2022-04-07] MEDS ORDERED: SUGAMMADEX SODIUM 500 MG/5 ML VIAL (BRIDION) As Ordered ONE (08:10)
[2022-04-07] MEDS ORDERED: MIDAZOLAM INJ 2MG/2ML VIAL (J2250 PER 1MG) As Ordered ONE (08:10)
[2022-04-07] MEDS ORDERED: KETOROLAC 60MG 2ML VIAL As Ordered ONE (08:10)
[2022-04-07] MEDS ORDERED: ONDANSETRON 4MG 2ML VIAL As Ordered ONE (08:10)
[2022-04-07] MEDS ORDERED: LIDOCAINE 2% 100MG/5ML SDV (FOR ANES.) As Ordered ONE (08:10)
[2022-04-07] MEDS ORDERED: HYDROmorphone HCL 2MG/ML 1ML VIAL As Ordered ONE (08:10)
[2022-04-07] MEDS ORDERED: dexameTHASONE 4 MG/ML 1ML VIAL (J1100 PER 1MG) As Ordered ONE (08:10)
[2022-04-07] MEDS ORDERED: GLYCOPYRROLATE INJ 0.2 MG/ML 2 ML VIAL As Ordered ONE (08:41)
[2022-04-07] MEDS ORDERED: MORPHINE 4 MG/ML 1ML VIAL/SYRINGE IV PRN (09:55)
[2022-04-07] MEDS ORDERED: ONDANSETRON 4MG 2ML VIAL IV PRN ×2 (09:55→10:00)
[2022-04-07] MEDS ORDERED: PERCOCET 5MG/325MG TAB PO PRN ×2 (09:55)
[2022-04-07] MEDS ORDERED: fentaNYL 100 MCG/2 ML INJECTION IV PRN (10:00)
[2022-04-07] MEDS ORDERED: HYDROMORPHONE HCL 0.5 MG/ 0.5 ML SYRINGE (J1170 PER 1) IV PRN (10:00)
[2022-04-07] MEDS ORDERED: PERCOCET PO (10:06)
[2022-04-07] MEDS ORDERED: COLA100C5 PO (10:06)
[2022-04-07] MEDS ORDERED: IBUP80TA PO (10:06)
[2022-04-07] MEDS ORDERED: ONDA4TAB6 PO (10:08)
[2022-04-07] MEDS: oxyCODONE 5MG TAB PO PRN ×2 (10:39→11:14)
[2022-04-07 13:50] VITALS: BP 136/79
[2022-04-07 14:20] VITALS: BP 125/80
[2022-04-07 15:20] VITALS: BP 122/76
[2022-04-07] MEDS ORDERED: KETOROLAC 30 MG/ML 1ML VIAL IV SCH (16:00)
[2022-04-07 16:20] VITALS: BP 130/82
[2022-04-07] MEDS ORDERED: DOCUSATE SODIUM 100MG CAPSULE PO SCH (21:00)
[2022-04-08] MEDS ORDERED: IBUPROFEN 800 MG TAB PO SCH (18:00)
== END 2022-04-07 17:00 | disposition home or self-care (01) ==
LOC: M SDC 06:11 → M MS5PR 13:25 → M SDC 17:00
PROVIDERS: ATTEND Obstetrics & Gynecology
DX: N84.0 Polyp of corpus uteri (principal); N72 Inflammatory disease of cervix uteri; N93.9 Abnormal uterine and vaginal bleeding, unspecified; D64.9 Anemia, unspecified; Z98.84 Bariatric surgery status; Z86.16 Personal history of COVID-19; Z79.899 Other long term (current) drug therapy; G43.909 Migraine, unspecified, not intractable, without status migrainosus
CPT/HCPCS: 36415; 58571; 84703; 85027; 86850; 86900; 86901; 88307; J0131; J0690; J1100; J1170; J1885; J2250; J2405; J2765; J3010; Q9968; S2900

== ENCOUNTER 2022-08-31 16:15 | Outpatient (CLI) | payer OTHER ==
[~2022-08-31 16:15] MED LIST changes: +COLA100C5 PO; +PERCOCET PO; -ceFAZolin SOD 2 GM in IV 1 EA IV ONE
[2022-08-31 16:40] VITALS: BP 161/84
[2022-08-31] MEDS ORDERED: FERRIC CARBOXYMALTOSE INJ 750 MG in NS 250 ML (>50kg) IV ONE ×3 (17:00)
[2022-08-31 18:20] VITALS: BP 158/91
== END 2022-08-31 18:20 | disposition home or self-care (01) ==
LOC: M INFU 16:15
PROVIDERS: ATTEND Internal Medicine Medical Oncology
DX: D50.9 Iron deficiency anemia, unspecified (principal)
CPT/HCPCS: 96365; J1439

== ENCOUNTER 2022-09-05 00:23 | Emergency (ER) | payer OTHER ==
[~2022-09-05] VITALS: Ht 162.6 cm; Wt 87.6 kg
[2022-09-05 02:51] LABS: BASO # 0.1 10^3/uL (0.0-0.2); BASO % 0.5 % (0.0-1.0); EOS # 0.1 10^3/uL (0.0-0.5); EOS % 1.2 % (0.0-3.0); HEMATOCRIT 41.1 % (36.0-47.0); HEMOGLOBIN 13.4 g/dl (12.0-15.5); LYMPH # 2.6 10^3/uL (1.5-5.0); MEAN CORPUSCULAR HEMOGLOBIN 30.4 pg (27.0-33.0); MEAN CORPUSCULAR HGB CONC 32.6 g/dl (32.0-36.5); MEAN CORPUSCULAR VOLUME 93.2 fl (80.0-96.0); MONO # 0.5 10^3/uL (0.0-0.8); MONO % 4.8 % (2.0-8.0); NEUTROPHILS # 7.6 10^3/uL (1.5-8.5); NEUTROPHILS % 69.1 % (36.0-66.0); PLATELET COUNT, AUTOMATED 268 10^3/uL (150-450); RED BLOOD COUNT 4.41 10^6/uL (4.00-5.40)
[2022-09-05 03:14] LABS: LIPASE 44 U/L (12-53)
[2022-09-05 03:16] LABS: CPK CREATINE PHOSPHOKINASE 87 U/L (34-145)
[2022-09-05] MEDS ORDERED: KETOROLAC 30 MG/ML 1ML VIAL IV ONE (03:25)
[2022-09-05 04:04] LABS: ALBUMIN 3.3 G/DL (3.2-5.2); ALKALINE PHOSPHATASE 89 U/L (46-116); ALT/SGPT 19 U/L (7.0-40); AST/SGOT 20 U/L (<34); BILIRUBIN,DIRECT 0.1 MG/DL (<0.4); BILIRUBIN,TOTAL 0.5 MG/DL (0.3-1.2); BLOOD UREA NITROGEN 14 MG/DL (9-23); CALCIUM LEVEL 8.2 MG/DL (8.5-10.1); CARBON DIOXIDE LEVEL 28 MMOL/L (20-31); CHLORIDE LEVEL 105 MMOL/L (98-107); CK-MB VALUE MASS < 1.0 NG/ML (<3.6); CREATININE FOR GFR 0.78 MG/DL (0.55-1.30); GLOMERULAR FILTRATION RATE > 60.0 (>58); GLUCOSE, FASTING 97 MG/DL (60-100); MB/CK RELATIVE INDEX 1.14 (< OR =4); POTASSIUM SERUM 3.7 MMOL/L (3.5-5.1); SODIUM LEVEL 139 MMOL/L (136-145)
[2022-09-05 04:23] LABS: TOTAL PROTEIN 6.6 G/DL (5.7-8.2)
[2022-09-05 04:24] LABS: CK-MB VALUE MASS < 1.0 NG/ML (<3.6); CPK CREATINE PHOSPHOKINASE 91 U/L (34-145); MB/CK RELATIVE INDEX 1.09 (< OR =4)
[2022-09-05 04:30] VITALS: BP 141/84
[2022-09-05] MEDS ORDERED: NAPR-837 PO (04:37)
[2022-09-05] MEDS ORDERED: CYCL5TAB PO (04:37)
== END 2022-09-05 04:48 | disposition home or self-care (01) ==
LOC: M ED 00:23
DX: S16.1XXA Strain of muscle, fascia and tendon at neck level, initial encounter (principal); Z98.84 Bariatric surgery status; Z79.1 Long term (current) use of non-steroidal anti-inflammatories (NSAID); Z79.891 Long term (current) use of opiate analgesic
CPT/HCPCS: 71045; 80048; 80076; 82550; 82553; 83690; 83880; 84484; 85025; 93005; 96374; 99284; J1885

== ENCOUNTER 2022-09-08 16:07 | Outpatient (CLI) | payer OTHER ==
[~2022-09-08] VITALS: Ht 157.5 cm; Wt 83.8 kg
[2022-09-08 16:15] VITALS: BP 139/92
[2022-09-08] MEDS ORDERED: FERRIC CARBOXYMALTOSE INJ 750 MG in NS 250 ML (>50kg) IV ONE ×3 (17:00)
[2022-09-08 18:15] VITALS: BP 142/85
== END 2022-09-08 18:15 | disposition home or self-care (01) ==
LOC: M INFU 16:07
PROVIDERS: ATTEND Internal Medicine Medical Oncology
DX: D50.9 Iron deficiency anemia, unspecified (principal)
CPT/HCPCS: 96365; J1439